=== PATIENT | male | born 1980 | race African-American/Black ===

== ENCOUNTER 2024-11-15 14:20 | Observation (INO) | payer OTHER ==
[2024-11-15] MEDS ORDERED: Sodium Chloride 0.9% 10 ML Syringe FLUSH PRN (14:29)
[2024-11-15] MEDS: Lactated Ringers 1,000 ML IV SCH (14:41)
[2024-11-15 15:02] LABS: BASOPHILS ABSOLUTE AUTO 0.01 10^3/uL (0.00-0.10); BASOPHILS PERCENT AUTO 0.2 % (0.0-1.0); HEMATOCRIT 32.9 % (40.0-52.0); HEMOGLOBIN 11.6 g/dL (13.0-17.0); IMMATURE GRAN ABSOLUTE AUTO 0.01 10^3/uL (0.00-0.04); IMMATURE GRAN PERCENT AUTO 0.2 % (0.0-0.4); LYMPHOCYTES ABSOLUTE AUTO 0.64 10^3/uL (1.00-4.00); LYMPHOCYTES PERCENT AUTO 13.7 % (20.0-40.0); MEAN CORPUSCULAR HEMOGLOBIN 38.8 pg (27.0-31.0); MEAN CORPUSCULAR HGB CONC 35.3 g/dL (32.0-36.0); MEAN PLATELET VOLUME 9.8 fL (7.4-10.4); MONOCYTES ABSOLUTE AUTO 0.49 10^3/uL (0.10-0.80); MONOCYTES PERCENT AUTO 10.5 % (2.0-8.0); NEUTROPHILS ABSOLUTE AUTO 3.51 10^3/uL (2.50-7.00); NEUTROPHILS PERCENT AUTO 75.4 % (50.0-70.0); PLATELET COUNT,PLT 108 10^3/uL (150-400); RED BLOOD CELL COUNT 2.99 10^6/uL (4.50-6.00); RED CELL DISTRIBUTION WIDTH 12.6 % (11.5-14.5); WHITE BLOOD CELL COUNT,WBC 4.66 10^3/uL (5.00-10.00)
[2024-11-15] MEDS: Acetaminophen 500 MG Tab PO ONE (15:17)
[2024-11-15 15:20] LABS: ALBUMIN 3.72 g/dL (3.40-5.00); ANION GAP 12.9 mmol/L (5-15); BILIRUBIN TOTAL 0.9 mg/dL (0.2-1.0); CARBON DIOXIDE,CO2 31.4 mmol/L (21.0-32.0); CREATININE 0.72 mg/dL (0.51-1.17); EST CRCL DRUG DOSING (CG) 109.63 mL/min; POTASSIUM,K 3.3 mmol/L (3.5-5.1)
[2024-11-15] MEDS: Cefepime 2 GM Vial IVPUSH ONE (16:10)
[2024-11-15] MEDS: Magnesium Sulfate 2 GM/50 mL 2 GM in Premix Bag 1 BAG IV ONE (16:11)
[2024-11-15] MEDS: Sodium Chloride 0.9% 50 ML IV SCH (16:11)
[2024-11-15] MEDS: NS with KCl 40mEq 1,000 ML IV SCH (16:14)
[2024-11-15] MEDS ORDERED: Acetaminophen 325 MG Tab PO PRN (18:34)
[2024-11-15] MEDS: MAGNESIUM SULFATE IV ONE (19:16)
[2024-11-16 02:21] LABS: APPEARANCE,URINE CLEAR (CLEAR); BILIRUBIN,URINE NEGATIVE (NEGATIVE); COLOR,URINE AMBER (YELLOW); GLUCOSE,URINE NEGATIVE (NEGATIVE); KETONES,URINE TRACE mg/dL (NEGATIVE); LEUKOCYTE ESTERASE,URINE NEGATIVE (NEGATIVE); NITRITE,URINE NEGATIVE (NEGATIVE); OCCULT BLOOD,URINE NEGATIVE (NEGATIVE); PROTEIN,URINE 100 mg/dL (NEGATIVE); UROBILINOGEN,URINE 0.2 E.U./dL (0.2-1.0)
[2024-11-16 02:30] LABS: BACTERIA,URINE RARE /HPF (NONE TO FEW); EPITHELIAL CELLS,URINE RARE /LPF; HYALINE CASTS,URINE RARE; MUCUS,URINE MANY /LPF (NEGATIVE); RBC,URINE 0-5 /HPF (0-5); WBC,URINE NOT SEEN /HPF (0-5)
[2024-11-16 07:44] LABS: HEMATOCRIT 32.1 % (40.0-52.0); HEMOGLOBIN 11.1 g/dL (13.0-17.0); MEAN CORPUSCULAR HEMOGLOBIN 39.1 pg (27.0-31.0); MEAN CORPUSCULAR HGB CONC 34.6 g/dL (32.0-36.0); MEAN PLATELET VOLUME 10.4 fL (7.4-10.4); PLATELET COUNT,PLT 108 10^3/uL (150-400); RED BLOOD CELL COUNT 2.84 10^6/uL (4.50-6.00); RED CELL DISTRIBUTION WIDTH 12.6 % (11.5-14.5); WHITE BLOOD CELL COUNT,WBC 3.69 10^3/uL (5.00-10.00)
[2024-11-16 08:01] LABS: ALBUMIN 3.36 g/dL (3.40-5.00); ANION GAP 10.6 mmol/L (5-15); BILIRUBIN TOTAL 1.1 mg/dL (0.2-1.0); CALCIUM 8.2 mg/dL (8.7-10.3); CARBON DIOXIDE,CO2 28.6 mmol/L (21.0-32.0); CREATININE 0.61 mg/dL (0.51-1.17); EST CRCL DRUG DOSING (CG) 129.4 mL/min; MAGNESIUM 2.1 mg/dL (1.8-2.4); PHOSPHORUS 2.5 mg/dL (2.6-4.7); POTASSIUM,K 4.2 mmol/L (3.5-5.1); PROTEIN TOTAL,TP 7.5 g/dL (6.4-8.2)
== END 2024-11-16 12:57 | disposition home or self-care (01) ==
LOC: KA.ED 14:20 → KA.MS 16:03
PROVIDERS: ADMIT Internal Medicine; ATTEND Internal Medicine
DX: R55 Syncope and collapse (principal); R79.89 Other specified abnormal findings of blood chemistry; E87.6 Hypokalemia; E83.42 Hypomagnesemia; Z21 Asymptomatic human immunodeficiency virus [HIV] infection status; Z79.899 Other long term (current) drug therapy
CPT/HCPCS: 36415; 70450; 71045; 80053; 81001; 83605; 83735; 84100; 84484; 85025; 85027; 85379; 87040; 96361; 96365; 99285-25; A9270-GY; J3475; J3480; J7120; Q3014